=== PATIENT | male | born 1950 | race Caucasian/White ===

== ENCOUNTER 2024-09-12 14:18 | Emergency (ER) | payer OTHER, MEDICARE ==
[~2024-09-12] VITALS: Ht 167.6 cm; Wt 93.3 kg
[2024-09-12] MEDS ORDERED: ZOLPIDEM TARTRAT5 MG PO (14:34)
[2024-09-12] MEDS ORDERED: ROSUVASTATIN CAL5 MG PO (14:34)
[2024-09-12] MEDS ORDERED: SERTRALINE HCL50 MG PO (14:34)
[2024-09-12] MEDS ORDERED: TAMSULOSIN HCL0.4 MG PO (14:35)
[2024-09-12 15:52] VITALS: BP 140/63
== END 2024-09-12 15:55 | disposition home or self-care (01) ==
LOC: ED 14:18
DX: S62.231A Other displaced fracture of base of first metacarpal bone, right hand, initial encounter for closed fracture (principal); E78.00 Pure hypercholesterolemia, unspecified; Z98.1 Arthrodesis status; Z91.013 Allergy to seafood; Z91.041 Radiographic dye allergy status; Z79.899 Other long term (current) drug therapy; W22.8XXA Striking against or struck by other objects, initial encounter
CPT/HCPCS: 29125; 73130; 99283-25